=== PATIENT | female | born 1990 | race Caucasian/White ===

== ENCOUNTER 2017-03-22 20:31 | Emergency (ER) | payer OTHER ==
[~2017-03-22] VITALS: Ht 154.9 cm; Wt 59.0 kg
[~2017-03-22 20:31] MED LIST: ACETAMINOPHEN-1 EAC1 PO; ADDERALL 20 MG20 M1 PO; AYGESTIN 5 MG TA5 M1 PO
[2017-03-22 21:06] LABS: URINE BILIRUBIN NEGATIVE (Negative); URINE BLOOD 3+ (Negative); URINE COLOR YELLOW; URINE GLUCOSE-RANDOM* NEGATIVE (Negative); URINE KETONES NEGATIVE (Negative); URINE NITRITE NEGATIVE (Negative); URINE PROTEIN (DIPSTICK) 1+ (Negative); URINE SPECIFIC GRAVITY >= 1.030 (1.003-1.035)
[2017-03-22 21:25] LABS: SQUAMOUS >10 Many /LPF (0-3)
[2017-03-22 21:26] LABS: BACTERIA >30 Many /HPF (None Seen); CASTS None Seen /LPF (None Seen); CRYSTALS None Seen /LPF (None Seen); URINE RBC 3-10 Few /HPF (0-2); URINE WBC 6-15 Few /HPF (0-5)
[2017-03-22] MEDS ORDERED: BACTRIM DS TAB1 EACH PO (22:48)
[2017-03-22] MEDS ORDERED: IBUPROFEN 600600 M1 PO (22:50)
[2017-03-22 23:06] VITALS: BP 112/78
== END 2017-03-22 23:07 | disposition home or self-care (01) ==
LOC: ER 20:31
PROVIDERS: Nurse Practitioner
DX: N39.0 Urinary tract infection, site not specified (principal); F17.210 Nicotine dependence, cigarettes, uncomplicated; F10.99 Alcohol use, unspecified with unspecified alcohol-induced disorder; Z88.5 Allergy status to narcotic agent

== ENCOUNTER 2017-04-25 21:07 | Emergency (ER) | payer OTHER ==
[~2017-04-25] VITALS: Ht 154.9 cm; Wt 64.4 kg
[~2017-04-25 21:07] MED LIST changes: +BACTRIM DS TAB1 EACH PO; +IBUPROFEN 600600 M1 PO
[2017-04-25 21:14] VITALS: BP 132/91
[2017-04-25] MEDS ORDERED: CLEOCIN HCL150 MG PO (21:21)
[2017-04-25] MEDS ORDERED: MOBIC7.5 MG PO (21:36)
== END 2017-04-25 21:40 | disposition home or self-care (01) ==
LOC: ER 21:07
DX: J02.0 Streptococcal pharyngitis (principal); F17.210 Nicotine dependence, cigarettes, uncomplicated; F10.99 Alcohol use, unspecified with unspecified alcohol-induced disorder; Z88.5 Allergy status to narcotic agent